=== PATIENT | female | born 1985 | race Caucasian/White ===

== ENCOUNTER 2025-08-19 18:04 | Inpatient (IN) | payer BC ==
[~2025-08-19] VITALS: Ht 170.2 cm; Wt 97.1 kg
[2025-08-19 18:08] VITALS: O2SAT 97
[2025-08-19 19:07] LABS: BASOPHILS % 0.6 % (0.0-2.0); EOSINOPHILS % 0.7 % (0.0-5.0); HEMATOCRIT. 39.9 % (36.0-48.0); HEMOGLOBIN. 13.2 g/dL (12.0-16.0); LYMPHOCYTES % 30.2 % (20.0-50.0); MEAN PLATELET VOLUME 8.9 fl (7.4-10.4); MONOCYTES % 6.2 % (2.0-8.0); NEUTROPHILS % 62.3 % (40.0-76.0); PLATELET 240 x1000/uL (130-400); RED BLOOD CELL COUNT 4.45 mill/uL (4.2-5.4); RED CELL DISTRIBUTION WIDTH 12.8 % (11.6-14.6)
[2025-08-19 19:33] LABS: INR 0.9
[2025-08-19 19:39] LABS: CREATININE 0.7 mg/dL (0.6-1.0)
[2025-08-19 19:40] LABS: UREA NITROGEN BLOOD 6 mg/dL (9-23)
[2025-08-19 19:41] LABS: ASPARTATE AMINOTRANSFERASE 19 IU/L (<34); TROPONIN I HIGH SENSITIVITY 6 ng/L (3.0-34)
[2025-08-19 19:42] LABS: BILIRUBIN DIRECT < 0.1 mg/dL (<=3.0); BILIRUBIN TOTAL 0.4 mg/dL (0.1-1.0); PROTEIN TOTAL 7.3 g/dL (6.0-8.3)
[2025-08-19 19:54] LABS: HCG SCREEN NEGATIVE
[2025-08-19 20:17] LABS: *AMPHETAMINES SCREEN URINE NEGATIVE (NEGATIVE); *BARBITURATES SCREEN URINE NEGATIVE (NEGATIVE); *BENZODIAZEPINES SCREEN URINE NEGATIVE (NEGATIVE); *COCAINE SCREEN URINE NEGATIVE (NEGATIVE); CANNABINOID URINE SCREEN NEGATIVE (NEGATIVE); ECSTASY MDMA SCREEN URINE NEGATIVE (NEGATIVE); METHADONE URINE SCREEN NEGATIVE (NEGATIVE); OPIATES URINE SCREEN NEGATIVE (NEGATIVE); PHENCYCLIDINE URINE SCREEN NEGATIVE (NEGATIVE)
[2025-08-19 20:24] LABS: CLARITY URINE CLEAR (CLEAR); COLOR URINE YELLOW (YELLOW); SPECIFIC GRAVITY URINE 1.046 (1.005-1.030)
[2025-08-19 20:25] LABS: GLUCOSE URINE NEGATIVE (NEGATIVE); KETONES URINE NEGATIVE (NEGATIVE); LEUKOCYTE ESTERASE URINE NEGATIVE (NEGATIVE); NITRITE URINE NEGATIVE (NEGATIVE); OCCULT BLOOD URINE NEGATIVE (NEGATIVE); PH URINE 7.5 (4.5-8.0); PROTEIN URINE NEGATIVE (NEGATIVE); UROBILINOGEN URINE 0.2 E.U./dL (0.2-1.0)
[2025-08-19 21:07] LABS: TROPONIN I HIGH SENSITIVITY 5 ng/L (3.0-34)
[2025-08-19 23:40] VITALS: BP 134/94; PULSE 62; RESP 20; TEMP 36.3624
[2025-08-20] VITALS: BP 132/94; PULSE 62; RESP 20; TEMP 36.3; O2SAT 99
[2025-08-20 04:00] VITALS: BP 119/80; PULSE 57; RESP 20; TEMP 36.3; O2SAT 100
[2025-08-20] MEDS ORDERED: IOHEXOL-350 100 ML BOTTLE ONE (05:54)
[2025-08-20 08:00] VITALS: BP 134/89; PULSE 68; RESP 15; TEMP 36.6; O2SAT 96
[2025-08-20] MEDS ORDERED: ACETAMINOPHEN 325MG TABLET PO PRN (08:30)
[2025-08-20] MEDS ORDERED: ONDANSETRON HCL 4MG/2ML INJ IV PRN (08:30)
[2025-08-20] MEDS ORDERED: HYDROCODONE/ACETAMINOPHEN 5/325MG TABLET PO PRN (08:30)
[2025-08-20] MEDS: ASPIRIN 81MG EC TABLET PO SCH (09:19)
[2025-08-20 12:00] VITALS: BP 129/82; PULSE 64; RESP 16; TEMP 36.7; O2SAT 99
[2025-08-20] MEDS: LOSARTAN 25 MG TABLET PO SCH (12:40)
[2025-08-20 16:00] VITALS: BP 136/96; PULSE 79; RESP 16; TEMP 37; O2SAT 96
[2025-08-20 20:00] VITALS: BP 125/85; PULSE 67; RESP 17; TEMP 36.4; O2SAT 97
[2025-08-21] VITALS: BP 120/58; PULSE 58; RESP 18; TEMP 36.4; O2SAT 98
[2025-08-21 02:33] LABS: TROPONIN I HIGH SENSITIVITY 5 ng/L (3.0-34)
[2025-08-21 04:00] VITALS: BP 135/85; PULSE 56; RESP 18; TEMP 36.4; O2SAT 98
[2025-08-21 08:00] VITALS: BP 134/96; PULSE 63; RESP 16; TEMP 36.4; O2SAT 99
[2025-08-21 08:36] LABS: BASOPHILS % 0.6 % (0.0-2.0); EOSINOPHILS % 1.6 % (0.0-5.0); HEMATOCRIT. 38.9 % (36.0-48.0); HEMOGLOBIN. 12.9 g/dL (12.0-16.0); LYMPHOCYTES % 34.7 % (20.0-50.0); MEAN PLATELET VOLUME 9.2 fl (7.4-10.4); MONOCYTES % 8.1 % (2.0-8.0); NEUTROPHILS % 55.0 % (40.0-76.0); PLATELET 217 x1000/uL (130-400); RED BLOOD CELL COUNT 4.32 mill/uL (4.2-5.4); RED CELL DISTRIBUTION WIDTH 12.9 % (11.6-14.6)
[2025-08-21 08:46] LABS: CREATININE 0.7 mg/dL (0.6-1.0); TRIGLYCERIDE 177 mg/dL (0-150)
[2025-08-21 08:47] LABS: LDL CHOLESTEROL 133 mg/dL (5-100); UREA NITROGEN BLOOD 6 mg/dL (9-23)
[2025-08-21 08:50] LABS: T4 FREE 1.37 ng/dL (0.89-1.76)
[2025-08-21 12:00] VITALS: BP 116/77; PULSE 82; RESP 16; TEMP 36.6; O2SAT 100
[2025-08-21] MEDS ORDERED: LOSA25TA26 PO (14:31)
[2025-08-21] MEDS ORDERED: ASPI-1406 PO (14:31)
[2025-08-21] MEDS ORDERED: LIP40 PO (14:31)
[2025-08-21] MEDS ORDERED: NALOXONE HCL 0.4MG/ML VIAL IV PRN (15:00)
[2025-08-21 16:00] VITALS: BP 140/96; PULSE 80; RESP 16; TEMP 36.4; O2SAT 100
[2025-08-21 17:00] VITALS: BP 134/79; PULSE 66; RESP 18; TEMP 98.1
[2025-08-21] MEDS: CLONIDINE 0.1MG TABLET PO PRN (17:25)
[2025-08-21] MEDS ORDERED: ATORVASTATIN CALCIUM 40MG TABLET PO SCH (21:00)
== END 2025-08-21 23:57 | disposition home or self-care (01) | DRG 305 ==
LOC: ER 18:04 → ENRESERV 22:48 → 5WST 23:32
PROVIDERS: ADMIT Internal Medicine; ATTEND Internal Medicine
DX: I16.1 Hypertensive emergency (principal); R20.0 Anesthesia of skin; I10 Essential (primary) hypertension
CPT/HCPCS: 36415; 70496; 70498; 70551; 71045; 80048; 80061; 80076; 80305; 80320; 81003; 83036; 83880; 84439; 84443; 84484; 84703; 85025; 93005; 93306; 97161; 99291; Q9967; G0480